=== PATIENT | male | born 1965 | race Caucasian/White ===

== ENCOUNTER → 2016-09-06 | Outpatient (CLI) | payer OTHER ==
--- NOTE | ~2016-09-06 | S ---
[facility] [place] [address] SURGICAL PATH RPT PROCEDURE Name: NATO ABERNATHY Room #: REG [facility]#: [id number] Admission: 09/06/16 Date of : 65 Discharge: Report #: [id number] Path Case #: [id number] PATHOLOGY REPORT COLLECTION DATE: 09/06/2016 RECEIVED DATE: 09/06/2016 SUBMITTING PHYS: Dr. Justice Ward OTHER PHYS: Dr. Anson Fenton SPECIMEN(S) RECEIVED: A.Polyp at transverse x 2 B.Polyp at descending colon x 2 C.Polyp at rectum * * * * * * * * * * * * FINAL DIAGNOSIS: A. "Polyp at transverse x2", biopsy: - Tubular adenoma; no high grade dysplasia. B. "Polyp at descending colon x2", biopsy: - Tubular adenoma; no high grade dysplasia. - Hyperplastic polyp. C. "Polyp at rectum", biopsy: - Tubular adenoma; no high grade dysplasia. (CLW:juan; d/t: 09/07/2016) PATHOLOGIST: Blanca Somers M.D. REPORT ELECTRONICALLY SIGNED BY: Blanca Somers M.D. DATE/TIME: 09/07/2016 14:41 * * * * * * * * * * * * GROSS PATHOLOGY: A. Received in formalin labeled "Nato Abernathy, polyp at transverse 2," are four segments of guadalupe soft tissue measuring 1.0 x 1.0 x 0.3 cm in aggregate dimensions and ranging from 0.3 to 0.5 cm in maximum dimension. The specimen is submitted entirely in cassette A1. B. Received in formalin labeled "Nato Abernathy, polyp at descending colon," are three segments of guadalupe soft tissue measuring 0.7 x 0.7 x 0.1 cm in aggregate dimensions and ranging from 0.2 to 0.7 cm in maximum dimension. The specimen is submitted entirely in cassette B1. C. Received in formalin labeled "Nato Abernathy, polyp at rectum," is a segment of guadalupe soft tissue measuring 0.4 cm in maximum dimension. The specimen is submitted entirely in cassette C1. (CAA; 09/06/2016) [address] [address] SURGICAL PATH RPT PROCEDURE Name: NATO ABERNATHY Room #: [facility].#: [id number] Admission: 09/06/16 Date of : 65 Discharge: Report #: [id number] Path Case #: [id number] CLINICAL HISTORY: Colonoscopy checkup INITIAL CPT CODE(S): A; 51529 B; 07819 C; 76824 Professional services performed by [facility] at [address] , [place] [address] Technical services performed by [facility] at [address] [place] [address], [facility] [address] [address]. [facility] [address] [address] PHONE: [phone] DIRECTOR: Jeffery Pedroza M.D. * * * END OF REPORT * * *
--- NOTE | ~2016-09-06 | P ---
[facility] [place] [address] PROCEDURE REPORT Name: ABERNATHYNATO Pablo [id number] Admission: 09/06/16 Attend Phys: Justice Londono Discharge: Date of : 65 Report #: [id number] THIS REPORT FOR: //name// CC: Justice Fenton DO DATE OF SERVICE: 09/06/2016 PROCEDURE PERFORMED: Colonoscopy with polypectomies. HISTORY OF PRESENT ILLNESS: The patient is a 51-year-old male who presents today for a routine screening colonoscopy. Denies any symptoms. No family history of colon cancer. DESCRIPTION OF PROCEDURE: The risks and benefits of the procedure were explained to the patient, those risks including but not limited to bleeding, perforation, the risk of sedation. He understood these risks and gave informed consent. Sedation was given using propofol per anesthesia. Next, a digital rectal exam was initially performed, which was normal. Next, using a standard Fujinon colonoscope, the scope was placed in the patient's anus and advanced under direct vision to the cecum. The overall prep was good. The cecum and ileocecal valve were normal in appearance. The ascending colon was normal. In the transverse colon, there were 2 polyps. The smaller polyp was 4 mm in size and removed with cold forceps, the larger was 6 mm and removed by snare cautery. In the descending colon, there were 2 further polyps. These ranged in size, 5 mm, removed by snare cautery, 3 mm, removed by cold forceps, multiple diverticula were noted throughout the sigmoid colon without inflammation. In the rectum, there was a 3 mm sessile polyp. This was also removed with cold forceps. On retroflexion, no abnormalities were noted. The scope was then withdrawn and the procedure terminated. The patient tolerated the procedure well. IMPRESSION: 1. Small colonic polyps as described above. 2. Sigmoid diverticulosis. 3. Otherwise, normal colonoscopy. RECOMMENDATIONS: 1. Await biopsy results. 2. If polyps are hyperplastic, repeat in 10 years; if adenomatous polyps, repeat in [address] [address] PROCEDURE REPORT Name: NATO ABERNATHY Room #: REG [facility] Prasanna#: [id number] Admission: 09/06/16 Attend Phys: Justice Londono Discharge: Date of : 65 Report #: [id number] Thank you for allowing me to participate in his care. <ELECTRONICALLY SIGNED> By: Justice Ward MD 09/06/16 1120 [id number] [id number] Justice Ward MD /nt
== END ==
LOC: GI 07:42
DX: Z12.11 Encounter for screening for malignant neoplasm of colon (principal); D12.3 Benign neoplasm of transverse colon; D12.4 Benign neoplasm of descending colon; D12.8 Benign neoplasm of rectum; K63.5 Polyp of colon; K57.30 Diverticulosis of large intestine without perforation or abscess without bleeding
CPT/HCPCS: 62110

== ENCOUNTER → 2021-07-30 | Outpatient (CLI) | payer OTHER | LOC: SJCVCIMAG 08:21 | PROVIDERS: ATTEND Internal Medicine | DX: I95.9 Hypotension, unspecified (principal); I10 Essential (primary) hypertension; R55 Syncope and collapse ==